=== PATIENT | female | born 1995 | race African-American/Black ===

== ENCOUNTER 2019-04-07 13:26 | Inpatient (IN) | payer MEDICAID, SELFPAY ==
[2019-04-07] MEDS ORDERED: Ondansetron PF 4 MG/2 ML Vial ONE (13:57)
[2019-04-07 14:19] LABS: Hemoglobin 9.1 g/dL (12.0-16.0); Mean Corpuscular HGB CONC 30.8 g/dL (32.0-36.0); Mean Corpuscular Hemoglobin 19.7 pg (27.0-31.0); Mean Corpuscular Volume 64.1 fL (78.0-98.0); Mean Platelet Volume 8.2 fL (7.4-10.4); Platelet Count 237 thou/uL (130-400); RBC Distribution Width 20.5 % (11.5-14.5); White Blood Cell (WBC) Count 16.2 thou/uL (4.8-10.8)
[2019-04-07 14:20] LABS: #Basophils 0.1 thou/uL (0.0-0.2); #Lymphocytes 1.2 thou/uL (1.20-3.40); #Monocytes 1.4 thou/uL (0.11-0.59); #Neutrophils 13.4 thou/uL (1.40-6.50); %Basophils 0.9 % (0.0-1.0); %Lymphocytes 7.6 % (21.0-51.0); %Monocytes 8.9 % (0.0-10.0); %Neutrophils 82.6 % (42.0-75.0)
[2019-04-07 14:40] LABS: ALT (SGPT) 10 U/L (8-55); AST (SGOT) 18 U/L (5-34); Albumin 4.3 g/dL (3.5-5.0); Alkaline Phosphatase 62 U/L (40-110); Anion Gap 15 mmol/L (10-20); BUN (Urea Nitrogen) 5 mg/dL (7.0-18.7); Bilirubin, Total 0.6 mg/dL (0.2-1.2); Calc. Creatinine Clearance 0 mL/min (70-130); Calcium 9.5 mg/dL (7.8-10.44); Carbon Dioxide 25 mmol/L (22-29); Chloride 97 mmol/L (98-107); Estimated GFR-MDRD Greater than 90; Globulin 4.4 g/dL (2.4-3.5); Glucose 101 mg/dL (70-105); Potassium 3.5 mmol/L (3.5-5.1); Protein, Total 8.7 g/dL (6.0-8.3); Sodium 133 mmol/L (136-145)
[2019-04-07 14:45] LABS: Hypochromia SLIGHT = 6-15 cells (100X) (0-5/hpf); MDiff Complete? YES; Microcytosis MODERATE=15-30 cells (100X) (0-5/hpf); Platelet Morphology Comment Appears Adequate; Polychromasia SLIGHT = 2-3 cells (100X) (0-2/hpf); Reflex for Review?? YES; Schistocytes SLIGHT = 2-5 cells (100X) (0-1/hpf); Target Cells SLIGHT = 2-5 cells (100X) (0-1/hpf); Tear Drops SLIGHT = 2-5 cells (100X) (0-1/hpf)
[2019-04-07] MEDS ORDERED: Ketorolac Tromethamine 30 MG/ML VIAL ONE (15:05)
--- NOTE | 2019-04-07 15:54 | CT ---
Exam: Head CT without contrast HISTORY: Headache COMPARISON: 01/06/2013 FINDINGS: Hemorrhage: No intraparenchymal hemorrhage or extra-axial hematoma. Brain parenchyma: Cortical prado-white matter differentiation is preserved. No mass effect or midline shift. Basilar cisterns are patent. Ventricular system: Ventricles and sulci are patent and symmetric. Calvarium: Intact. Sinuses and mastoid air cells: Adequate aeration. IMPRESSION: No acute intracranial process.
--- NOTE | 2019-04-07 16:06 | RAD ---
EXAM: CHEST ONE VIEW HISTORY: Fever, vomiting, and headache. COMPARISON: None FINDINGS: Cardiac silhouette and pulmonary vasculature are within normal limits for the portable technique of t his study. The lungs are clear. The osseous structures are intact. IMPRESSION: No acute cardiopulmonary process.
[2019-04-07 16:07] LABS: Bacteria/HPF 2+ HPF (None Seen); Bilirubin Negative (Negative); Blood, Urine 3+ (Negative); Clarity Turbid (Clear); Glucose, Urine (Dipstick) Normal (Negative); Leukocyte 500 Leu/uL (Negative); Nitrite Negative (Negative); Protein, Urine (Dipstick) 50 mg/dL (Neg-Trace); RBC/HPF Greater than 50 HPF (0-3); Squamous Epithelial 0-3 HPF (0-3); WBC/HPF Greater than 50 HPF (0-3)
[2019-04-07] MEDS ORDERED: cefTRIAXone\\ROCEPHIN 1 GM VIAL ONE (17:02)
[2019-04-07] MEDS ORDERED: Acetaminophen 500 MG TAB ONE (17:02)
[2019-04-07] MEDS ORDERED: Vancomycin 1.5 GRAM/300 ML BAG 1.5 GM in Premix Bag 1 BAG IVPB ONE (17:30)
[2019-04-07] MEDS ORDERED: HYDROcodone/Acetaminophen 5/325 mg Tablet PO PRN (19:07)
[2019-04-07] MEDS ORDERED: Ondansetron ODT 4 MG TAB PO PRN (19:08)
[2019-04-07] MEDS ORDERED: Ondansetron PF 4 MG/2 ML Vial IVP PRN (19:08)
[2019-04-07] MEDS ORDERED: Loperamide HCl 2 MG CAP PO PRN (19:08)
[2019-04-07] MEDS ORDERED: Calcium Carbonate 500 MG ChewTAB PO PRN (19:08)
[2019-04-07] MEDS ORDERED: Bisacodyl 5 MG TAB PO PRN (19:08)
[2019-04-07] MEDS ORDERED: Labetalol HCl 100 MG/20 ML VIAL SLOW IVP PRN (19:10)
[2019-04-07] MEDS ORDERED: Docusate 100 MG CAP PO PRN (19:10)
[2019-04-07] MEDS ORDERED: Benzonatate 100 MG CAP PO PRN (19:10)
[2019-04-07] MEDS ORDERED: Melatonin 3 MG TAB PO PRN (19:10)
[2019-04-07] MEDS ORDERED: diphenhydrAMINE 25 MG CAP PO PRN (19:10)
[2019-04-07] MEDS ORDERED: Lorazepam 2 MG/ML VIAL SLOW IVP PRN (20:14)
--- NOTE | 2019-04-07 20:21 | PDOC.HHP ---
Hospitalist HPI - History of Present Illness Seizure and UTI History of Present Illness: 23-year-old female presents with possible seizure type activity and urinary tract infection. I find the patient in the emergency department she is sitting up in the bed in no apparent distress. Breathing comfortably on room air. Patient talking in full sentences. There are no focal neurologic deficits. Patient states that she has had several seizures over the past few years. Patient states that she was placed on antiepileptic drug in the past, though she never followed up with a physician and never got refills. Patient states that she had her most recent seizure on Saturday of this week. She tells me that it was when she was sleeping. No one witnessed the seizure. There is no recollection of spasticity of movements of arms and legs. There was no tongue biting. There is no loss of bowel or bladder function. Patient states that when she has a seizure she gets real sleepy and then she has a headache. Patient has a similar headache this afternoon and states that this is what it feels like when she has a seizure. Patient with subjective fever and chills. She was concern that she had the flu and came to the emergency department. Patient found to have urinary tract infection on admission. Hospitalist ROS - Review of Systems All other systems reviewed; all pertinent +/- noted in HPI/Subj Hospitalist History - Past Medical History Source: patient, old records [employer]: reports: Seizure Heme/Onc: reports: Anemia NOS - Social History Smoking Status: Unknown if ever smoked Alcohol: reports: None Drugs: reports: none Living Situation: With Family Domestic Violence: Negative Activity level: independent ambulation - Exam General Appearance: NAD, awake alert Eye: PERRL, anicteric sclera ENT: normocephalic atraumatic, moist mucosa Neck: supple, symmetric, no lymphadenopathy Heart: RRR, no murmur, no gallops, no rubs, normal peripheral pulses Respiratory: CTAB, no wheezes, no rales, no ronchi, normal chest expansion, no tachypnea Gastrointestinal: soft, non-tender, non-distended, no guarding, no rigidity Gastrointestinal - other findings: No costovertebral angle tenderness Extremities: no clubbing, no edema Skin: no lesions, no rashes Neurological: cranial nerve grossly intact, normal sensation to touch, no focal deficits Musculoskeletal: normal tone, generalized weakness Psychiatric: normal affect, normal behavior, A&O x 3 Hospitalist Results - Labs Result Diagrams: 04/07/19 13:52 04/07/19 13:52 Lab results: WBC 16.2 thou/uL (4.8-10.8) H 04/07/19 13:52 Hgb 9.1 g/dL (12.0-16.0) L 04/07/19 13:52 Hct 29.5 % (36.0-47.0) L 04/07/19 13:52 MCV 64.1 fL (78.0-98.0) L 04/07/19 13:52 Plt Count 237 thou/uL (130-400) 04/07/19 13:52 Neutrophils % 82.6 % (42.0-75.0) H 04/07/19 13:52 Sodium 133 mmol/L (136-145) L 04/07/19 13:52 Potassium 3.5 mmol/L (3.5-5.1) 04/07/19 13:52 Chloride 97 mmol/L (98-107) L 04/07/19 13:52 Carbon Dioxide 25 mmol/L (22-29) 04/07/19 13:52 BUN 5 mg/dL (7.0-18.7) L 04/07/19 13:52 Creatinine 0.75 mg/dL (0.6-1.1) 04/07/19 13:52 Glucose 101 mg/dL (70-105) 04/07/19 13:52 Lactic Acid 0.8 mmol/L (0.5-2.2) 04/07/19 13:52 Calcium 9.5 mg/dL (7.8-10.44) 04/07/19 13:52 Total Bilirubin 0.6 mg/dL (0.2-1.2) 04/07/19 13:52 AST 18 U/L (5-34) 04/07/19 13:52 ALT 10 U/L (8-55) 04/07/19 13:52 Alkaline Phosphatase 62 U/L (40-110) 04/07/19 13:52 Serum Total Protein 8.7 g/dL (6.0-8.3) H 04/07/19 13:52 Albumin 4.3 g/dL (3.5-5.0) 04/07/19 13:52 Urine Ketones 80 mg/dL (Negative) A 04/07/19 15:10 Urine Blood 3+ (Negative) A 04/07/19 15:10 Urine Nitrite Negative (Negative) 04/07/19 15:10 Ur Leukocyte Esterase 500 Charity/uL (Negative) A 04/07/19 15:10 Urine RBC Greater than 50 HPF (0-3) A 04/07/19 15:10 Urine WBC Greater than 50 HPF (0-3) A 04/07/19 15:10 Ur Squamous Epith Cells 0-3 HPF (0-3) 04/07/19 15:10 Urine Bacteria 2+ HPF (None Seen) A 04/07/19 15:10 - Radiology Interpretation CT scan - head Status: image reviewed by ct Hospitalist H&P A/P - Problem (1) Seizure Code(s): R56.9 - UNSPECIFIED CONVULSIONS Status: Acute (2) Sepsis Code(s): A41.9 - SEPSIS, UNSPECIFIED ORGANISM Status: Acute (3) High anion gap metabolic acidosis Code(s): E87.2 - ACIDOSIS Status: Acute (4) Headache Code(s): R51 - HEADACHE Status: Acute - Plan Plan: Plan: admit to medical unit neurology consultation, recommendations appreciated MRI brain EEG restart antiepileptic drug from prior hospitalization IV antibiotics for urinary tract infection urine culture blood culture sepsis protocol IV fluid resuscitation Tylenol as needed for fever renal ultrasound evaluate for pyelonephritis symptomatic therapy for tension headache as needed patient will need improved compliance with outpatient physician and neurology to avoid future hospitalizations/complications of seizures elevated anion gap, add venous blood gas to evaluate for acidosis patient appears dehydrated blood pressure control blood sugar control G.I. prophylaxis DVT prophylaxis
[2019-04-07] MEDS ORDERED: NS 0.9% w/ 40 MEQ KCL 1,000 ML IV SCH (20:30)
[2019-04-07] MEDS: levETIRAcetam 500 mg/5 ml Oral Solution PO SCH (20:51)
[2019-04-07] MEDS: Famotidine 20 MG TAB PO SCH (20:51)
[2019-04-07 20:58] LABS: Actual Bicarbonate (HCO3v) 22 mEq/L (22-28); Base Excess -1.9 mEq/L (-2.0 to +3.0); Calcium, Ionized 1.07 mmol/L (1.16-1.32); Chloride (ABG LAB) 106 mmol/L (98-106); Hemoglobin (Hb) 8.6 g/dL (11.7-15.5); Potassium - ABG Lab 3.36 mmol/L (3.70-5.30); pH (venous) 7.41 (7.32-7.43)
[2019-04-07] MEDS ORDERED: levETIRAcetam 500 MG TAB PO SCH (21:00)
[2019-04-07 21:12] LABS: Alcohol Less than 10 mg/dL (Less than 10); Salicylate Less than 8.0 mg/dL (15.0-30.0)
[2019-04-07 21:29] VITALS: BMI 22.0
--- NOTE | 2019-04-07 21:30 | PDOC.EVN ---
Event Note - Event Note Event Note: Follow up on labs: pH not acidotic on VBG. Salicilate and acetaminophen levels not elevated. Negative alcohol level. Utox pending.
[2019-04-07 21:55] LABS: Amphetamine Not Detected (NotDetected); Barbiturates Screen Not Detected (NotDetected); Benzodiazepine Screen Not Detected (NotDetected); Cocaine Metabolite Screen Not Detected (NotDetected); Medtox Control Line Valid? VALID (VALID); Medtox Reader # READER 4; Methadone Not Detected (NotDetected); Methamphetamine Not Detected (NotDetected); Opiate Screen Not Detected (NotDetected); Oxycodone Screen Not Detected (NotDetected); Phencyclidine (PCP) Not Detected (NotDetected); THC/Cannabinoid Screen Not Detected (NotDetected); Tricyclic Screen Not Detected (NotDetected)
[2019-04-07] MEDS ORDERED: FLU VACC QS2019-20(6MOS UP)/PF 60 MCG/0.5 ML SYRINGE IM ONE (23:30)
[2019-04-08 07:49] LABS: Anion Gap 10 mmol/L (10-20); BUN (Urea Nitrogen) 4 mg/dL (7.0-18.7); Calc. Creatinine Clearance 149 mL/min (70-130); Calcium 8.5 mg/dL (7.8-10.44); Carbon Dioxide 24 mmol/L (22-29); Chloride 106 mmol/L (98-107); Estimated GFR-MDRD Greater than 90; Glucose 111 mg/dL (70-105); Potassium 3.9 mmol/L (3.5-5.1); Sodium 136 mmol/L (136-145)
[2019-04-08 08:01] LABS: #Lymphocytes 1.8 thou/uL (1.20-3.40); #Monocytes 1.3 thou/uL (0.11-0.59); #Neutrophils 7.3 thou/uL (1.40-6.50); %Basophils 0.5 % (0.0-1.0); %Eosinophils 0.2 % (0.0-10.0); %Lymphocytes 17.3 % (21.0-51.0); %Monocytes 12.3 % (0.0-10.0); %Neutrophils 69.7 % (42.0-75.0); Hemoglobin 8.3 g/dL (12.0-16.0); Mean Corpuscular HGB CONC 30.6 g/dL (32.0-36.0); Mean Corpuscular Volume 65.3 fL (78.0-98.0); Mean Platelet Volume 9.6 fL (7.4-10.4); Platelet Count 203 thou/uL (130-400); RBC Distribution Width 20.8 % (11.5-14.5); Red Blood Cell (RBC) Count 4.12 mill/uL (4.20-5.40); White Blood Cell (WBC) Count 10.4 thou/uL (4.8-10.8)
[2019-04-08] MEDS: Famotidine 20 MG TAB PO SCH ×2 (08:32→20:32)
[2019-04-08] MEDS: Acetaminophen 325 MG TAB PO PRN ×2 (08:32→16:47)
[2019-04-08] MEDS: levETIRAcetam 500 mg/5 ml Oral Solution PO SCH ×2 (08:33→20:33)
[2019-04-08] MEDS: HYDROcodone/Acetaminophen 7.5/325 mg Tablet PO PRN ×2 (08:56→20:32)
[2019-04-08] MEDS ORDERED: FLU VACC QS2019-20(6MOS UP)/PF 60 MCG/0.5 ML SYRINGE IM ONE (09:00)
--- NOTE | 2019-04-08 11:50 | ULT ---
Exam: Bilateral renal ultrasound HISTORY: Evaluate for pyelonephritis COMPARISON: None FINDINGS: Right kidney: Normal cortical echotexture. No hydronephrosis. Right kidney measurements: 6.5 x 8.1 x 12.6 cm. Left kidney: Normal cortical echotexture. No hydronephrosis Left kidney measurements 6.4 x 6.0 x 12.0 cm. Urinary bladder: Normal mucosa. Prevoid bladder volume is 219 mL IMPRESSION: No hydronephrosis.
[2019-04-08] MEDS ORDERED: Metoclopramide HCl 10 MG/2 ML VIAL IVP SCH (12:00)
--- NOTE | 2019-04-08 13:06 | PDOC.HOSPP ---
- Subjective Encounter Date: 04/08/19 Encounter Time: 09:15 Subjective: c/o headache, is getting EEG now no sob or abd pain or nausea - Objective Vital Signs & Weight: Vital Signs (12 hours) Temp Pulse Resp BP Pulse Ox 04/08/19 12:05 97.9 F 83 18 95/60 97 04/08/19 08:30 100 04/08/19 08:05 99.8 F H 105 H 18 131/83 100 Weight Weight 145 lb 1.6 oz Result Diagrams: 04/08/19 07:11 04/08/19 07:11 Hospitalist ROS - Medication Medications: Active Medications Generic Name Dose Route Start Last Admin Trade Name Freq PRN Reason Stop Dose Admin Acetaminophen 650 mg 04/07/19 19:07 04/08/19 08:32 Tylenol PO 650 mg Q4H PRN Administration Headache/Fever/Mild Pain (1-3) Hydrocodone Bitart/Acetaminophen 1 tab 04/07/19 19:07 04/08/19 08:56 [place] 7.5/325 PO 1 tab Q4H PRN Administration Severe Pain (7-10) Famotidine 20 mg 04/07/19 21:00 04/08/19 08:32 Pepcid PO 20 mg BID MICHAEL Administration Levetiracetam 250 mg 04/07/19 21:00 04/08/19 08:33 Keppra Oral Solution PO 250 mg BID MICHAEL Administration Metoclopramide HCl 10 mg 04/08/19 12:00 04/08/19 12:15 Reglan IVP 04/08/19 14:00 10 mg NOW MICHAEL Administration - Exam General Appearance: awake alert Eye: PERRL, anicteric sclera ENT: no oropharyngeal lesions, dry oral mucosa Neck: supple, no JVD Heart: RRR, no murmur Respiratory: no wheezes, no rales Gastrointestinal: soft, non-tender, non-distended, normal bowel sounds Extremities: no cyanosis, no edema Neurological: cranial nerve grossly intact, no focal deficits Psychiatric: normal affect, A&O x 3 Hosp A/P (1) UTI (urinary tract infection) Status: Acute Qualifiers: Urinary tract infection type: acute cystitis Hematuria presence: without hematuria Qualified Code(s): N30.00 - Acute cystitis without hematuria (2) Headache Code(s): R51 - HEADACHE Status: Acute Qualifiers: Headache type: unspecified (3) Seizure Code(s): R56.9 - UNSPECIFIED CONVULSIONS Status: Chronic (4) Sepsis Code(s): A41.9 - SEPSIS, UNSPECIFIED ORGANISM Status: Acute Qualifiers: Sepsis type: sepsis due to unspecified organism Sepsis acute organ dysfunction status: without acute organ dysfunction Qualified Code(s): A41.9 - Sepsis, unspecified organism - Plan is on ceftriaxone, await full culture results, prelim its growing e.coli usg renal shows no obstr etiology is on keppra, gentle iv hydration dihydro-ergotamine for headache hemotable to amb as tolerated
[2019-04-08] MEDS: Dihydroergotamine Mesylate 1 MG/ML AMP SLOW IVP SCH ×3 (13:45→23:34)
--- NOTE | 2019-04-08 14:36 | EEG ---
Referring Physician: Ramy STEPHENS EEG # [id number] TEST TYPE: ROUTINE PORTABLE INPATIENT REPORT: AN EEG USING THE [employer]NATIONAL TEN-TWENTY SYSTEM OF ELECTRODE PLACEMENT WAS PERFORMED. The waking background rhythm is a medium amplitude 9 hertz alpha frequency. There is quite a bit of movement and muscle artifact present, but no epileptiform features were seen. Patient refused photic stimulation due to severe head pain. IMPRESSION: THIS IS A NORMAL AWAKE EEG. Wood Tool Maker: TYREE Mold Breaker: [email or web address] GUAN
--- NOTE | 2019-04-08 16:02 | MRI ---
MRI brain noncontrast HISTORY: Headache. Seizure. FINDINGS: There is no evidence of acute intracranial hemorrhage or infarct. Large of the temporal and frontal lobes are obscured on the diffusion-weighted images due to metallic susceptibility artifact emanating from the face. There is no mass effect or shift of midline structures. Ventricles appear normal in size, shape and p osition. Visualized paranasal sinuses remain well aerated. IMPRESSION: No acute intracranial abnormalities are demonstrated.
[2019-04-08] MEDS ORDERED: Valproate Sodium 1,000 MG in Sodium Chloride 0.9% 100 ML IVPB PRN (16:41)
[2019-04-08] MEDS: cefTRIAXone\\ROCEPHIN 2 GM in Sodium Chloride 0.9% 100 ML IVPB SCH (16:41)
[2019-04-09] MEDS: HYDROcodone/Acetaminophen 7.5/325 mg Tablet PO PRN (08:02)
[2019-04-09] MEDS: levETIRAcetam 500 mg/5 ml Oral Solution PO SCH ×2 (08:03→20:24)
[2019-04-09] MEDS: Famotidine 20 MG TAB PO SCH ×2 (08:03→20:24)
[2019-04-09 10:37] LABS: Iron 8 ug/dL (50-170); Iron Binding Capacity, Total 286 mcg/dL (265-497)
--- NOTE | 2019-04-09 13:09 | PDOC.HOSPP ---
- Subjective Encounter Date: 04/09/19 Encounter Time: 08:15 Subjective: says her headache is still there, no nausea or abd pain is ambulating in room - Objective Vital Signs & Weight: Vital Signs (12 hours) Temp Pulse Resp BP Pulse Ox 04/09/19 08:00 99.3 F 96 20 119/75 98 Weight Weight 145 lb 1.6 oz I&O: 04/08/19 04/09/19 04/10/19 06:59 06:59 06:59 Intake Total 850 Balance 850 Result Diagrams: 04/08/19 07:11 04/08/19 07:11 Hospitalist ROS - Medication Medications: Active Medications Generic Name Dose Route Start Last Admin Trade Name Freq PRN Reason Stop Dose Admin Acetaminophen 650 mg 04/07/19 19:07 04/08/19 16:47 Tylenol PO 650 mg Q4H PRN Administration Headache/Fever/Mild Pain (1-3) Hydrocodone Bitart/Acetaminophen 1 tab 04/07/19 19:07 04/09/19 08:02 [place] 7.5/325 PO 1 tab Q4H PRN Administration Severe Pain (7-10) Famotidine 20 mg 04/07/19 21:00 04/09/19 08:03 Pepcid PO 20 mg BID MICHAEL Administration Ceftriaxone Sodium 2 gm/ 100 mls @ 5 mls/hr 04/08/19 17:00 04/08/19 16:41 Sodium Chloride IVPB 100 mls Q24HR MICHAEL Administration Levetiracetam 250 mg 04/07/19 21:00 04/09/19 08:03 Keppra Oral Solution PO 250 mg BID MICHAEL Administration - Exam General Appearance: awake alert Eye: PERRL, anicteric sclera ENT: no oropharyngeal lesions, moist mucosa Neck: supple, no JVD Heart: RRR, no murmur Respiratory: no wheezes, no rales Gastrointestinal: soft, non-tender, non-distended, normal bowel sounds Extremities: no cyanosis, no edema Neurological: cranial nerve grossly intact, no focal deficits Psychiatric: normal affect, A&O x 3 Hosp A/P (1) UTI (urinary tract infection) Status: Acute Qualifiers: Urinary tract infection type: acute cystitis Hematuria presence: without hematuria Qualified Code(s): N30.00 - Acute cystitis without hematuria (2) Headache Code(s): R51 - HEADACHE Status: Acute Qualifiers: Headache type: unspecified (3) Seizure Code(s): R56.9 - UNSPECIFIED CONVULSIONS Status: Chronic (4) Sepsis Code(s): A41.9 - SEPSIS, UNSPECIFIED ORGANISM Status: Acute Qualifiers: Sepsis type: sepsis due to unspecified organism Sepsis acute organ dysfunction status: without acute organ dysfunction Qualified Code(s): A41.9 - Sepsis, unspecified organism - Plan is on ceftriaxone, will switch to oral quinolone in am and likely dc home usg renal shows no obstr etiology is on keppra, gentle iv hydration dihydro-ergotamine/valproic acid for headache hemotable to amb as tolerated
[2019-04-09] MEDS ORDERED: Iron, Sodium Ferric Gluconate 250 MG in Sodium Chloride 0.9% 100 ML IVPB SCH (16:00)
[2019-04-09] MEDS: Acetaminophen 325 MG TAB PO PRN (16:43)
[2019-04-09] MEDS: cefTRIAXone\\ROCEPHIN 2 GM in Sodium Chloride 0.9% 100 ML IVPB SCH (16:43)
[2019-04-09] MEDS: Dihydroergotamine Mesylate 1 MG/ML AMP SLOW IVP SCH (20:27)
--- NOTE | 2019-04-10 00:03 | CON ---
DATE OF CONSULTATION: 04/09/2019 CONSULTING PHYSICIAN: Hospitalist Service. IMPRESSION: Probable migraine. PLAN: 1. IV Depakote trial. 2. Consider IV morphine if necessary. HISTORY OF PRESENT ILLNESS: Ms. Pizarro is a 23-year-old woman, who denies any significant past history. She developed severe headache that caused her to shake violently. She reportedly had a brief loss of consciousness. She was admitted for a workup for possible seizure. She had CT and MRI of the brain, which were both normal. Her EEG was also unremarkable as well. She still complains of 7/10 headache. She was found to have a urinary tract infection and low in iron. She is being treated for this as well. We attempted treatment with DHE and Reglan, and she reported some transient partial improvement. She refused further doses. I ordered valproic acid 1000 IV. She is still complaining of a headache now. She otherwise does not appear to be in any distress. PAST MEDICAL HISTORY: Otherwise, negative. ALLERGIES: NONE REPORTED. SOCIAL HISTORY: No tobacco or alcohol use. FAMILY HISTORY: Noncontributory. REVIEW OF SYSTEMS: Ten-system review of systems is otherwise negative. PHYSICAL EXAMINATION: GENERAL: Tall, thin young woman, in no apparent distress. VITAL SIGNS: Have been stable. She is afebrile. HEENT: Pupils equal and reactive. Conjunctivae clear. NECK: Supple. EXTREMITIES: No cyanosis, clubbing, or edema. NEUROLOGIC: She is alert and cooperative. Her speech is fluent and clear. Exam is nonfocal. There are no abnormal movements present. SUMMARY: This is a young woman with complaints of severe headache. She does not look overtly distressed. She is having her other issues addressed. She might respond to narcotic therapy. I will be happy to follow up with her as an outpatient. Job ID: [id number]
[2019-04-10] MEDS: levETIRAcetam 500 mg/5 ml Oral Solution PO SCH (08:39)
[2019-04-10] MEDS: Famotidine 20 MG TAB PO SCH (08:39)
[2019-04-10 11:34] VITALS: BP 113/72; TEMP 98.1
[2019-04-10] MEDS: cefTRIAXone\\ROCEPHIN 2 GM in Sodium Chloride 0.9% 100 ML IVPB SCH (13:02)
--- NOTE | 2019-04-11 17:02 | DIS ---
DATE OF ADMISSION: 04/07/2019 DATE OF DISCHARGE: 04/10/2019 DISCHARGE DISPOSITION: Home. PRIMARY DISCHARGE DIAGNOSES: 1. Sepsis. 2. Urinary tract infection. 3. Migraine headache. 4. History of seizure disorder. 5. Chronic iron deficiency anemia. PROCEDURES DONE DURING HOSPITALIZATION: Chest x-ray done showed no acute cardiopulmonary abnormality. CT brain done showed no acute intracranial abnormality. MRI brain showed no acute intracranial abnormality. Ultrasound kidneys showed no obstructive uropathy or hydronephrosis. EEG done showed normal awake EEG. H and H 8.3 and 27, platelet count 203, MCV 65, serum iron 8, ferritin is 27, percent saturation is 3, TIBC 286, albumin 4.3, BUN 4, creatinine 0.6. Urine drug screen was negative, plasma alcohol less than 10. Urine culture grew E coli sensitive to all antibiotics except ampicillin and Bactrim. DISCHARGE MEDICATIONS: 1. Ciprofloxacin 500 mg p.o. twice daily for 5 days. 2. Ferrous sulfate 325 mg p.o. twice daily. 3. Keppra 250 mg daily. 4. Multivitamin one tablet once daily. ALLERGIES: NO KNOWN DRUG ALLERGIES. INPATIENT CONSULT: Dr. Luna for Neurology. DISCHARGE PLAN: The patient to follow up with her primary care physician in 1 week. BRIEF COURSE DURING HOSPITALIZATION: The patient initially came in with complaints of severe headache, fever, and questionable seizure-type activity. In view of this history, the patient has had a full workup done in the ER. Her CT brain and MRI brain have not revealed any acute abnormality. EEG done showed alert and awake, normal PEG. Her urine culture grew E coli, sensitive to quinolones. The patient's headache got resolved with valproic acid IV infusion. She was evaluated by Dr. Luna for Neurology. The patient's fever has completely subsided. She is ambulating and eating well. She is hemodynamically stable and will be shortly discharged home. Please note, I have seen and examined the patient on the day of discharge. Job ID: [id number]
== END 2019-04-10 14:43 | disposition home or self-care (01) | DRG 872 ==
LOC: ERS 13:26 → T4-A 17:02
PROVIDERS: ADMIT Internal Medicine; ATTEND Internal Medicine
DX: A41.9 Sepsis, unspecified organism (principal); E87.2 Acidosis; N30.00 Acute cystitis without hematuria; G43.909 Migraine, unspecified, not intractable, without status migrainosus; G40.909 Epilepsy, unspecified, not intractable, without status epilepticus; D50.9 Iron deficiency anemia, unspecified; F31.9 Bipolar disorder, unspecified; E86.0 Dehydration
CPT/HCPCS: 36415; 70450; 70551; 71045; 76770; 80048; 80053; 80306; 80307; 81003; 81015; 82728; 82805; 83540; 83550; 83605; 85025; 85060; 87040; 87077; 87086; 87186; 87804; 93005; 95816; 95819; 96361; 96365; 96367; 96375; J0696; J1110; J1885; J2405; J2765; J2916; J3480; J3490

== ENCOUNTER 2019-06-26 18:16 | Emergency (ER) | payer MEDICAID, OTHER ==
[2019-06-26 18:53] LABS: Hemoglobin 10.4 g/dL (12.0-16.0); Mean Corpuscular HGB CONC 32.6 g/dL (32.0-36.0); Mean Corpuscular Hemoglobin 22.9 pg (27.0-31.0); Mean Corpuscular Volume 70.3 fL (78.0-98.0); Mean Platelet Volume 7.1 fL (7.4-10.4); Platelet Count 295 thou/uL (130-400); RBC Distribution Width 17.5 % (11.5-14.5); Red Blood Cell (RBC) Count 4.53 mill/uL (4.20-5.40); White Blood Cell (WBC) Count 7.2 thou/uL (4.8-10.8)
[2019-06-26 18:54] LABS: #Lymphocytes 0.9 thou/uL (1.20-3.40); #Monocytes 0.5 thou/uL (0.11-0.59); #Neutrophils 5.8 thou/uL (1.40-6.50); %Basophils 0.6 % (0.0-1.0); %Eosinophils 0.2 % (0.0-10.0); %Lymphocytes 12.5 % (21.0-51.0); %Monocytes 6.5 % (0.0-10.0); %Neutrophils 80.3 % (42.0-75.0)
[2019-06-26 18:56] LABS: BHCG - Serum Negative (NEGATIVE); Pregs Control Background? CLEAR/WHITE (CLR/WHITE); Pregs Control Bar Appear? YES (CONTROL BAR)
[2019-06-26 19:09] LABS: Bacteria/HPF None Seen HPF (None Seen); Bilirubin Negative (Negative); Blood, Urine 1+ (Negative); Clarity Clear (Clear); Glucose, Urine (Dipstick) Normal (Negative); Leukocyte 25 Leu/uL (Negative); Nitrite Negative (Negative); Protein, Urine (Dipstick) 70 mg/dL (Neg-Trace); Squamous Epithelial 0-3 HPF (0-3); Urobilinogen Normal mg/dL (Less than 2)
[2019-06-26 19:10] LABS: ALT (SGPT) 18 U/L (8-55); AST (SGOT) 28 U/L (5-34); Albumin 4.6 g/dL (3.5-5.0); Alkaline Phosphatase 54 U/L (40-110); Anion Gap 13 mmol/L (10-20); BUN (Urea Nitrogen) 13 mg/dL (7.0-18.7); Bilirubin, Total 0.7 mg/dL (0.2-1.2); Calc. Creatinine Clearance 0 mL/min (70-130); Calcium 9.7 mg/dL (7.8-10.44); Carbon Dioxide 23 mmol/L (22-29); Chloride 107 mmol/L (98-107); Estimated GFR-MDRD 86; Globulin 3.7 g/dL (2.4-3.5); Glucose 127 mg/dL (70-105); Potassium 3.4 mmol/L (3.5-5.1); Protein, Total 8.3 g/dL (6.0-8.3); Sodium 140 mmol/L (136-145)
[2019-06-26 19:19] LABS: Hypochromia SLIGHT = 6-15 cells (100X) (0-5/hpf); MDiff Complete? YES; Microcytosis SLIGHT = 6-15 cells (100X) (0-5/hpf); Platelet Morphology Comment Appears Adequate; Polychromasia SLIGHT = 2-3 cells (100X) (0-2/hpf); Target Cells SLIGHT = 2-5 cells (100X) (0-1/hpf); Tear Drops SLIGHT = 2-5 cells (100X) (0-1/hpf)
--- NOTE | 2019-06-26 19:22 | RAD ---
Exam: Chest one view HISTORY:Syncope. Lightheadedness. Headache. Comparison: 04/07/2019 FINDINGS: Cardiac silhouette: Normal Aorta: Unremarkable Pulmonary vessels: Normal Costophrenic angles: Clear LUNGS: Patchy interstitial opacities in the right lower lobe. Pneumothorax: None Osseous abnormalities: None IMPRESSION: Patchy right lower lobe interstitial opacities.
== END 2019-06-26 20:12 | disposition home or self-care (01) ==
LOC: ERS 18:16
DX: R55 Syncope and collapse (principal); G40.909 Epilepsy, unspecified, not intractable, without status epilepticus; F31.9 Bipolar disorder, unspecified
CPT/HCPCS: 36415; 71045; 80053; 81003; 81015; 84484; 84703; 85025; 93005; 94760

== ENCOUNTER 2020-01-13 17:57 | Emergency (ER) | payer OTHER | END 2020-01-13 18:32 | disposition home or self-care (01) | LOC: ERS 17:57 | DX: K08.89 Other specified disorders of teeth and supporting structures (principal); F31.9 Bipolar disorder, unspecified; G40.909 Epilepsy, unspecified, not intractable, without status epilepticus | CPT/HCPCS: 99282 ==

== ENCOUNTER 2020-11-27 17:32 | Emergency (ER) | payer OTHER ==
[2020-11-27] MEDS ORDERED: Bacitracin 1 PK ONE (18:08)
== END 2020-11-27 18:20 | disposition home or self-care (01) ==
LOC: ERS 17:32
DX: T23.261A Burn of second degree of back of right hand, initial encounter (principal); F17.290 Nicotine dependence, other tobacco product, uncomplicated; G40.909 Epilepsy, unspecified, not intractable, without status epilepticus; W22.10XA Striking against or struck by unspecified automobile airbag, initial encounter
CPT/HCPCS: 99283

== ENCOUNTER 2022-06-20 12:14 | Emergency (ER) | payer OTHER ==
[2022-06-20] MEDS ORDERED: Ketorolac Tromethamine 30 MG/ML VIAL ONE (14:30)
[2022-06-20] MEDS ORDERED: Iopamidol-370 76% 500 ML MDV (1 ML CHARGE) ONE (15:28)
== END 2022-06-20 15:08 | disposition home or self-care (01) ==
LOC: ERS 12:14
DX: S39.012A Strain of muscle, fascia and tendon of lower back, initial encounter (principal); S00.93XA Contusion of unspecified part of head, initial encounter; S40.021A Contusion of right upper arm, initial encounter; Y04.8XXA Assault by other bodily force, initial encounter
CPT/HCPCS: 70450; 70498; 72072; 72100; 96374; J1885; Q9967

== ENCOUNTER 2024-11-17 13:38 | Emergency (ER) | payer SELFPAY ==
[2024-11-17] MEDS ORDERED: Iopamidol-370 76% 500 ML MDV (1 ML CHARGE) ONE (14:33)
[2024-11-17 14:44] LABS: Hematocrit 29.2 % (36.0-47.0); Hemoglobin 8.3 g/dL (12.0-16.0); Mean Corpuscular Hemoglobin 18.5 pg (27.0-31.0); Mean Corpuscular Volume 65.0 fL (78.0-98.0); Platelet Count 403 10x3/uL (130-400); Red Blood Cell (RBC) Count 4.49 mill/uL (4.20-5.40); White Blood Cell (WBC) Count 3.94 10x3/uL (4.8-10.8)
[2024-11-17 14:46] LABS: ALT (SGPT) 23 U/L (Less than 34); AST (SGOT) 34 U/L (11-34); Albumin 4.1 g/dL (3.1-4.5); Alkaline Phosphatase 56 U/L (40-110); Anion Gap 14 mmol/L (10-20); BUN (Urea Nitrogen) 7 mg/dL (7.0-18.7); Bilirubin, Total 0.3 mg/dL (0.3-1.2); Calc. Creatinine Clearance 0 mL/min (70-130); Calcium 9.7 mg/dL (7.8-10.44); Carbon Dioxide 23 mmol/L (22-29); Chloride 105 mmol/L (98-107); Globulin 3.8 g/dL (2.4-3.5); Glucose 71 mg/dL (70-105); Potassium 4.1 mmol/L (3.5-5.1); Sodium 138 mmol/L (136-145)
[2024-11-17 15:12] LABS: Anisocytosis MODERATE=16-30 cells HPF (0-5); Macrocytosis SLIGHT = 6-15 cells HPF (0-5); Ovalocytes SLIGHT = 2-5 cells HPF (0-1); Platelet Adequacy Comment Platelets Increased; Polychromasia SLIGHT = 2-3 cells HPF (0-2); Smudge Cells 8.0 %; Target Cells MODERATE= 6-15 cells HPF (0-1)
[2024-11-17 17:16] LABS: BHCG - Serum Negative (NEGATIVE); Pregs Control Background? CLEAR/WHITE (CLR/WHITE); Pregs Control Bar Appear? YES (CONTROL BAR)
== END 2024-11-17 18:30 | disposition home or self-care (01) ==
LOC: ERS 13:38
DX: R09.1 Pleurisy (principal)
CPT/HCPCS: 36415; 71045; 71275; 80053; 84484; 84703; 85025; 93005; Q9967